=== PATIENT | female | born 1965 | race Caucasian/White ===

== ENCOUNTER 2018-09-18 12:49 | Outpatient (CLI) | payer BC ==
[~2018-09-18] VITALS: Ht 162.6 cm; Wt 80.1 kg
[2018-09-18] VITALS (7 sets, daily range): BP systolic 120–127; BP diastolic 78–95; PULSE 86–98
[2018-09-18] MEDS ORDERED: PRINIVIL40 MG PO (13:22)
[2018-09-18] MEDS ORDERED: LIPITOR 40MG TA40 MG PO (13:24)
[2018-09-18] MEDS ORDERED: LANTUS100 U/ML SQ (13:25)
[2018-09-18] MEDS ORDERED: MYSOLINE 5050 MG/TAB PO (13:25)
[2018-09-18] MEDS ORDERED: ASPIRIN E.C. 8181 MG PO (13:26)
[2018-09-18] MEDS ORDERED: HUMALOG100 U/ML SQ (13:26)
[2018-09-18] MEDS ORDERED: PROMETRIUM200 M1 PO (13:27)
[2018-09-18] MEDS ORDERED: INDERAL 20MG20 MG PO (13:27)
[2018-09-18 15:08] LABS: GLUCOSE,CSF 116 mg/dL (40-70); TOTAL PROTEIN,CSF 90 mg/dL (15-45)
[2018-09-18 15:26] LABS: CSF APPEARANCE CLEAR; CSF COLOR COLORLESS
[2018-09-18 15:27] LABS: CSF MONONUCLEAR 80 % (70-100); CSF POLYMORPHONUCLEAR 20 % (0-6); CSF RBC 96 /mm3 (0-0)
[2018-09-21 10:15] LABS: ALBUMIN CSF 51.3 mg/dL (<=27.0); IGG/ALBUMIN SERUM 0.27 (<=0.40)
== END 2018-09-18 16:59 | disposition home or self-care (01) ==
LOC: COL.RAD 12:49
PROVIDERS: Psychiatry & Neurology Neurology
DX: G37.9 Demyelinating disease of central nervous system, unspecified (principal); R93.0 Abnormal findings on diagnostic imaging of skull and head, not elsewhere classified; R90.82 White matter disease, unspecified